=== PATIENT | male | born 1990 | race African-American/Black ===

== ENCOUNTER 2016-11-11 10:02 | Emergency (ER) | payer BC ==
[~2016-11-11] VITALS: Wt 72.3 kg
[2016-11-11] MEDS ORDERED: IMIQ1CRE14 TOP (12:31)
--- NOTE | 2016-11-11 12:37 | ERD ---
ER Documentation Chief Complaint Date/Time DATE: 11/11/16 TIME: 12:34 Chief Complaint STATED BY PT GENITAL WARTS FOR 10 DAYS. HISTORY OF SAME. NO FEVERS HPI This is a 26-year-old male presenting to the emergency department complaining of warts on his penis for 3 years. Patient states that he has never tried any creams however he has tried a acid solution in the past. Patient states that he has been in intermediate for the past 2 years therefore he was unable to take care of it. He denies any fevers or pain. ROS All systems reviewed and are negative except as per history of present illness. Medications Home Meds Active Scripts Imiquimod (Imiquimod) 5% Cream.pack, 1 PACKET TOP QHS for 60 Days, #1 EA Prov:JULIANA DO PA-C 11/11/16 Allergies Allergies: Coded Allergies: No Known Allergy (Unverified , 11/11/16) PMhx/Soc Medical and Surgical Hx: pt denies Surgical Hx Hx Miscellaneous Medical Probl: Yes (genital warts) Hx Alcohol Use: No Hx Substance Use: No Physical Exam Vitals Vital Signs Date Time Temp Pulse Resp B/P Pulse Ox O2 Delivery O2 Flow Rate FiO2 11/11/16 10:06 97.5 66 20 126/84 99 Physical Exam General: WD/WN, in no apparent distress, non-toxic appearing HENT: NC/AT Eyes: Conjunctiva normal Neck: Supple Pulm: Clear to auscultation, normal labored breathing; no wheezing/rales/ rhonchi heard CV: Good capillary refill GI: Non-distended, no guarding Back: No masses Ext: No clubbing, cyanosis, or edema Neuro: Moves on all fours Skin: Skin colored papules around the base of the glans penis Psych: Normal mood Procedures/MDM This is a 26-year-old male presenting to the emergency room complaining of general warts on the glans penis for the past 3 years. 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 Other differentials I thought about herpes, syphilis, and other STDs. Patient is suitable to follow-up with his primary care physician for further evaluation management. I have written a prescription for Aldara and have given him instructions on use. Discussed return the emergency room for any worsening symptoms. Patient understands and agrees with this plan. He stable for discharge Departure Diagnosis: Primary Impression: Genital warts Condition: Stable Patient Instructions: HPV and Genital Warts: Understanding Your Diagnosis, HPV and Genital Warts: Taking Care of Yourself, Human Papillomavirus (HPV) Referrals: [facility] YOU HAVE RECEIVED A MEDICAL SCREENING EXAM AND THE RESULTS INDICATE THAT YOU DO NOT HAVE A CONDITION THAT REQUIRES URGENT TREATMENT IN THE EMERGENCY DEPARTMENT. FURTHER EVALUATION AND TREATMENT OF YOUR CONDITION CAN WAIT UNTIL YOU ARE SEEN IN YOUR DOCTORS OFFICE WITHIN THE NEXT 1-2 DAYS. IT IS YOUR RESPONSIBILITY TO MAKE AN APPOINTMENT FOR FOLOW-UP CARE. IF YOU HAVE A PRIMARY DOCTOR --you should call your primary doctor and schedule an appointment IF YOU DO NOT HAVE A PRIMARY DOCTOR YOU CAN CALL OUR PHYSICIAN REFERRAL HOTLINE AT IF YOU CAN NOT AFFORD TO SEE A PHYSICIAN YOU CAN CHOSE FROM THE FOLLOWING [facility] [address] [facility] [address] [facility] [facility] [address] [facility] [address] [facility] [address] [facility]. [address] Additional Instructions: FOLLOW UP WITH YOUR PRIMARY CARE PHYSICIAN TOMORROW.Return to this facility if you are not improving as expected. Take all medicines as directed. Return to this facility if you are not improving as expected. JULIANA DO PA-C Nov 11, 2016 12:37
== END 2016-11-11 12:50 | disposition home or self-care (01) ==
LOC: FTE 10:02
DX: A63.0 Anogenital (venereal) warts (principal)
CPT/HCPCS: 99283